=== PATIENT | female | born 2000 | race Caucasian/White ===

== ENCOUNTER 2025-04-06 16:27 | Emergency (ER) | payer SELFPAY ==
[2025-04-06] MEDS: Ketorolac 30 MG/ML SDV IM ONE (16:59)
[2025-04-06] MEDS: Take Home: Acetaminophen/HYDROcodone 325-5 MG, 5 Tab Pack PO ONE (17:46)
[2025-04-06] MEDS: Take Home: Cyclobenzaprine 10 MG Tab, 4 Tab Pack PO ONE (17:46)
== END 2025-04-06 17:45 | disposition home or self-care (01) ==
LOC: VM.ED 16:27
DX: M54.2 Cervicalgia (principal); Z88.2 Allergy status to sulfonamides
CPT/HCPCS: 96372; 99283; 99284; A9270-GY; J1885; J3360

== ENCOUNTER 2025-06-04 23:49 | Emergency (ER) | payer SELFPAY ==
[2025-06-05] MEDS: Ketorolac 30 MG/ML SDV IM ONE (00:19)
[2025-06-05] MEDS: Take Home: Cyclobenzaprine 10 MG Tab, 4 Tab Pack PO ONE (00:31)
== END 2025-06-05 01:04 | disposition home or self-care (01) ==
LOC: VM.ED 23:49
DX: M62.830 Muscle spasm of back (principal); Z88.2 Allergy status to sulfonamides
CPT/HCPCS: 96372; 99283; A9270; J1885